=== PATIENT | female | born 1965 | race Caucasian/White ===

== ENCOUNTER 2021-12-24 10:30 | Outpatient (RCR) | payer BC, SELFPAY | END 2022-02-01 15:13 | disposition home or self-care (01) | PROVIDERS: PCP Family Medicine; Visit Provider Podiatrist | DX: R26.9 Unspecified abnormalities of gait and mobility (principal); Z51.89 Encounter for other specified aftercare | CPT/HCPCS: 97032; 97110; 97116; 97140 ==